=== PATIENT | female | born 1980 | race Caucasian/White ===

== ENCOUNTER 2021-03-06 18:45 | Emergency (ER) | payer SELFPAY | END 2021-03-06 21:31 | disposition left against medical advice (07) | LOC: ER 18:45 | DX: R10.9 Unspecified abdominal pain (principal); Z53.21 Procedure and treatment not carried out due to patient leaving prior to being seen by health care provider ==

== ENCOUNTER 2021-03-10 22:58 | Emergency (ER) | payer SELFPAY ==
[~2021-03-10] VITALS: Ht 167.6 cm; Wt 86.0 kg
[2021-03-11] MEDS ORDERED: CONTRAST GIVEN. MC PRN (01:15)
[2021-03-11 01:17] LABS: BILIRUBIN,URINE NEGATIVE (NEG); CLARITY,URINE CLEAR; COLOR,URINE YELLOW; NITRITE,URINE NEGATIVE (NEG); PROTEIN,URINE NEGATIVE (NEG-TRACE); UROBILINOGEN,URINE 0.2 mg/dL (0.2 mg/dL)
[2021-03-11] MEDS ORDERED: IOHEXOL 300 MG/ML 100ML VIAL. IV ONE (01:30)
[2021-03-11] MEDS ORDERED: IOHEXOL 240 MG/ML 50ML VIAL. PO ONE (01:30)
--- NOTE | 2021-03-11 01:30 | PHYS DOC ---
Past Medical History Past Surgical History: Appendectomy, Cholecystectomy, , Gastric Bypass, Hysterectomy Smoking Status: Former Smoker Alcohol Use: Occasionally Adult General Chief Complaint Chief Complaint: NAUSEA/VOMITING/DIARRHEA HPI HPI The patient is a 41-year-old female with a history of gastric bypass around a decade ago in [place]. Her additional abdominal surgical history includes cholecystectomy, appendectomy, and hysterectomy. She has had what sounds like multiple abdominal surgical interventions for internal hernias in the past, the last a few years ago. She remains a smoker but tells me she does not use NSAIDs inappropriately. Patient presents for evaluation of a couple of days of sharp, focal epigastric discomfort radiating straight through to the back which she states feels very similar to her prior hernia discomfort. Discomfort is constant and rated an 7 out of 10 in severity. Nothing seems to make it better or worse. Associated nausea without vomiting. No associated fevers, upper respiratory c ongestion/rhinorrhea, cough, sore throat, shortness of breath or chest pain of any kind, specifically right-sided or lower abdominal pain of any kind, flank pain, midline back pain, dysuria, hematuria, polyuria or oliguria, changes in bowel habits. Patient is alert and pleasantly and appropriately interactive and in no acute distress with appropriate vital signs upon initial evaluation here in the emergency department. Review of Systems Review of Systems A 12 point review of systems was completed and was negative except where noted in HPI above. Current Medications Current Medications Current Medications Medications (Trade) Dose Ordered Sig/Ha Start Time Stop Time Status Last Admin Dose Admin Acetaminophen (Tylenol) 1,000 mg 1X ONCE 03/11/21 02:00 03/11/21 02:01 DC 03/11/21 01:17 1,000 MG Info (CONTRAST GIVEN -- Rx MONITORING) 1 each PRN DAILY PRN 03/11/21 01:15 03/13/21 01:14 Iohexol (Omnipaque 240 Mg/ml) 50 ml 1X ONCE 03/11/21 01:30 03/11/21 01:31 DC 03/11/21 01:30 50 ML Iohexol (Omnipaque 300 Mg/ml) 75 ml 1X ONCE 03/11/21 01:30 03/11/21 01:31 DC 03/11/21 02:22 75 ML Morphine Sulfate (Morphine Sulfate) 4 mg 1X ONCE 03/11/21 04:00 03/11/21 04:01 DC 03/11/21 03:52 4 MG Multi-Ingredient Mouthwash/Gargle (Gi Cocktail) 20 ml 1X ONCE 03/11/21 02:00 03/11/21 02:01 DC 03/11/21 01:48 20 ML Multivitamins 10 ml/Thiamine HCl 100 mg/Folic Acid 1 mg/Sodium Chloride 1,011.2 ml @ 1,000.088 mls/hr 1X ONCE 03/11/21 02:00 03/11/21 03:00 DC 03/11/21 01:53 1,000.088 MLS/HR Ondansetron HCl (Zofran) 4 mg 1X ONCE 03/11/21 02:00 03/11/21 02:01 DC 03/11/21 01:45 4 MG Allergies Allergies Allergies Coded Allergies Type Severity Reaction Last Updated Verified cephalexin Allergy Severe 03/11/21 Yes metoclopramide Allergy Severe 03/11/21 Yes ketorolac Allergy Intermediate 03/11/21 Yes prochlorperazine Allergy Intermediate 03/11/21 Yes tramadol Allergy Intermediate 03/11/21 Yes Physical Exam Physical Exam 41-year-old female appearing nontoxic and in no acute distress. Head is normocephalic and atraumatic. Neck is supple and nontender. Oropharynx is moist. Lungs are clear to auscultation at all stations. There is a normal S1 and S2 without rubs or gallops and capillary refill is appropriate, less than 2 seconds globally. Abdomen is soft, nondistended and with mild focal epigastric tenderness to palpation without rebound or guarding. No right-sided or lower quadrant abdominal tenderness to palpation. Skin is warm and dry without cyanosis, clubbing or edema. Psychiatrically, the patient demonstrates appropriate mood and affect and is alert. Current Patient Data Vital Signs Vital Signs Date Time Temp Pulse Resp B/P (MAP) Pulse Ox O2 Delivery O2 Flow Rate FiO2 03/11/21 03:52 16 98 Room Air 03/11/21 00:30 98.6 100 131/96 (108) 98.6 Lab Values Laboratory Tests Test 03/11/21 00:29 03/11/21 01:50 03/11/21 03:10 Urine Collection Type Unknown Urine Color Yellow Urine Clarity Clear Urine pH 7.0 (<5.0-8.0) Urine Specific [place] <=1.005 (1.000-1.030) Urine Protein Negative mg/dL (NEG-TRACE) Urine Glucose (UA) Negative mg/dL (NEG) Urine Ketones (Stick) Negative mg/dL (NEG) Urine Blood Negative (NEG) Urine Nitrite Negative (NEG) Urine Bilirubin Negative (NEG) Urine Urobilinogen Dipstick 0.2 mg/dL (0.2 mg/dL) Urine Leukocyte Esterase Negative (NEG) Urine RBC 0 /HPF (0-2) Urine WBC Occ /HPF (0-4) Urine Squamous Epithelial Cells Mod /LPF Urine Bacteria Few /HPF (0-FEW) Urine Mucus Slight /LPF White Blood Count 5.7 x10^3/uL (4.0-11.0) Red Blood Count 4.53 x10^6/uL (3.50-5.40) Hemoglobin 12.8 g/dL (12.0-15.5) Hematocrit 38.4 % (36.0-47.0) Mean Corpuscular Volume 85 fL (79-100) Mean Corpuscular Hemoglobin 28 pg (25-35) Mean Corpuscular Hemoglobin Concent 33 g/dL (31-37) Red Cell Distribution Width 15.5 % (11.5-14.5) H Platelet Count 205 x10^3/uL (140-400) Neutrophils (%) (Auto) 62 % (31-73) Lymphocytes (%) (Auto) 30 % (24-48) Monocytes (%) (Auto) 7 % (0-9) Eosinophils (%) (Auto) 1 % (0-3) Basophils (%) (Auto) 1 % (0-3) Neutrophils # (Auto) 3.5 x10^3/uL (1.8-7.7) Lymphocytes # (Auto) 1.7 x10^3/uL (1.0-4.8) Monocytes # (Auto) 0.4 x10^3/uL (0.0-1.1) Eosinophils # (Auto) 0.0 x10^3/uL (0.0-0.7) Basophils # (Auto) 0.0 x10^3/uL (0.0-0.2) Sodium Level 140 mmol/L (136-145) Potassium Level 4.2 mmol/L (3.5-5.1) Chloride Level 104 mmol/L (98-107) Carbon Dioxide Level 27 mmol/L (21-32) Anion Gap 9 (6-14) Blood Urea Nitrogen 7 mg/dL (7-20) Creatinine 0.8 mg/dL (0.6-1.0) Estimated GFR (Cockcroft-Gault) 79.4 BUN/Creatinine Ratio 9 (6-20) Glucose Level 99 mg/dL (70-99) Calcium Level 8.1 mg/dL (8.5-10.1) L Magnesium Level 2.0 mg/dL (1.8-2.4) Total Bilirubin 0.6 mg/dL (0.2-1.0) Aspartate Amino Transferase (AST) 16 U/L (15-37) Alanine Aminotransferase (ALT) 17 U/L (14-59) Alkaline Phosphatase 79 U/L (46-116) Total Protein 6.4 g/dL (6.4-8.2) Albumin 3.2 g/dL (3.4-5.0) L Albumin/Globulin Ratio 1.0 (1.0-1.7) Lipase 61 U/L (73-393) L Laboratory Tests 03/11/21 01:50 Laboratory Tests 03/11/21 03:10 EKG EKG [] Radiology/Procedures Radiology/Procedures CT ABDOMEN+PELVIS W History: Reason: epigastric pain rad to back; h/o thiago bypass s/p multiple internal hernias / Spl. Instructions: OMNI 240 50 ML PO, OMNI 300 75 ML. DRINK@0115 SCAN @2:15 / History: Technique: After the administration of intravenous contrast, CT imaging was performed of the abdomen and pelvis. Multiplanar images are reviewed. Exposure: One or more of the following individualized dose reduction techniques were utilized for this examination: 1. Automated exposure control 2. Adjustment of the mA and/or kV according to patient size 3. Use of iterative reconstruction technique. Comparison: None Findings: Lower chest: No consolidation or pleural effusion. Abdomen and pelvis: The liver, spleen, adrenal glands, and pancreas are unremarkable. Prior cholecystectomy. Biliary ductal dilatation within normal limits for post cholecystectomy state. No renal calculus. No hydronephrosis. Decompressed urinary bladder. Appendix is not well seen. No evidence of bowel obstruction. Oral contrast opacifies to the level of the colon. Operative changes gastric bypass. Wall thickening of the gastric remnant. Patent gastrojejunostomy. No evidence of bowel obstruction. No pathologic lymphadenopathy. No ascites. Prior hysterectomy. Bones: No pathologic osseous lesions. Impression: 1. Gastric bypass with wall thickening of the gastric remnant, may represent gastritis. Patent gastrojejunostomy. Recommend follow-up to ensure resolution. Electronically signed by: Olegario Ladd DO (03/11/2021 3:26 AM) [facility] DICTATED and SIGNED BY: OLEGARIO LADD DO DATE: 03/11/21 [id number] 0 Course & Med Decision Making Course & Med Decision Making Generally well-appearing 41-year-old female status post gastric bypass and multiple other abdominal surgeries in the past, with a history of multiple interventions for what sounds like internal hernias in the past. Now presenting with epigastric pain which she states feels similar to prior hernia discomfort. Will place IV and give IV fluids and medication for nausea and discomfort as noted and will check labs and a CT scan of the abdomen and pelvis with IV and enteric contrast. We will then reevaluate. 0400: Patient resting comfortably in no acute distress on serial reassessments. Having discomfort which is fairly refractory to pain medications here in the emergency department. Has received Protonix, GI cocktail, Tylenol and multiple doses of morphine. Labs and imaging as above are without evidence of any acute process aside from a suggestion of some gastritis on CT imaging. Given julito odonnell's refractory discomfort and gastric bypass history, recommended transfer to a center with bariatric surgery available for observation and further evaluation. Arranged a transfer to [facility] [place] for bariatric surgery evaluation and further care but patient states that she cannot be admitted to the hospital right now and wants to go home and follow-up outpatient. Let her know that if she chooses to go home and follow-up outpatient that this will be against my advice as I feel there are a number of serious unanswered questions regarding her acute pain. We discussed, and she understands, that she is at risk for decompensation, loss of current lifestyle, permanent disability and even and electing to leave the hospital against advice when transfer for bariatric surgery attention is recommended. She is able to restate these risks in her own words and agrees to be holey and sole responsible for them. Even though leaving against advice is not ideal, I have endeavored to provide her with appropriate follow-up instructions including a referral to bariatric surgery at [facility] [place]; she is to call on Saturday for an urgent appointment. She is already on 80 mg of Protonix twice daily. We will add on Carafate 4 times daily and provide some oral morphine for breakthrough discomfort. She understands that if she changes her mind and wants to be further taken care of, if she develops worsening symptoms of any kind or any other new symptoms of concern that she should return to the emergency department immediately for reevaluation, and we will be more than happy to take care of her. All questions are answered. AMA paperwork signed and placed in the [employer] nt chart. Dragon Disclaimer Dragon Disclaimer This electronic medical record was generated, in whole or in part, using a voice recognition dictation system. Departure Departure Impression: Primary Impression: Acute epigastric pain Disposition: LEFT AGAINST MEDICAL ADVICE Condition: STABLE Patient Instructions: Abdominal Pain Additional Instructions: Follow-up very closely with one of the bariatric surgeons at [facility] [place]. Call on Saturday morning for close follow-up appointment and let the clinical research specialist note that you were in the emergency room over the weekend and need a very close follow-up appointment with Dr. Allyssa Lopez for one of her bariatric surgery partners. Drink plenty of fluids to stay hydrated. Take your home Protonix twice a day as already prescribed. Begin taking a Carafate pill 4 times a day. You may take 500 mg of Tylenol every 6 hours as needed for disc omfort. For pain not well controlled with other measures you may take an oral morphine pill every 6 hours as needed. Be careful because oral morphine can make you sleepy so do not drive or work or operate machinery while taking it. Return to the emergency department right away for worsening symptoms of any kind or with any other new symptoms of concern. Scripts Morphine Sulfate (MORPHINE SULFATE) 15 Mg Tablet 1 TAB PO TID for breakthrough pain, #13 TAB Prov: LIN BAY MD 03/11/21 Sucralfate (CARAFATE) 1 Gm Tablet 1 TAB PO QID for 30 Days, #120 TAB 0 Refills Prov: LIN BAY MD 03/11/21 LIN BAY MD Mar 11, 2021 01:30
[2021-03-11 01:31] LABS: BACTERIA,URINE FEW /HPF (0-FEW); RBC,URINE 0 /HPF (0-2); WBC,URINE OCC /HPF (0-4)
[2021-03-11 01:56] LABS: BASO % 1 % (0-3); EOS % 1 % (0-3); HEMATOCRIT 38.4 % (36.0-47.0); HEMOGLOBIN 12.8 g/dL (12.0-15.5); LYMPH # 1.7 x10^3/uL (1.0-4.8); LYMPH % 30 % (24-48); MEAN CORPUSCULAR HEMOGLOBIN 28 pg (25-35); MEAN CORPUSCULAR HGB CONC 33 g/dL (31-37); MEAN CORPUSCULAR VOLUME 85 fL (79-100); MONO # 0.4 x10^3/uL (0.0-1.1); MONO % 7 % (0-9); NEUT # 3.5 x10^3/uL (1.8-7.7); NEUT % 62 % (31-73); PLATELET COUNT 205 x10^3/uL (140-400); RED BLOOD COUNT 4.53 x10^6/uL (3.50-5.40); RED CELL DISTRIBUTION WIDTH 15.5 % (11.5-14.5); WHITE BLOOD COUNT 5.7 x10^3/uL (4.0-11.0)
[2021-03-11] MEDS ORDERED: LIDO:MAALOX 1:1 20 ML SINGLE DOSE. SWSW ONE (02:00)
[2021-03-11] MEDS ORDERED: MULTIVIT INFUSN,ADULT 4,VIT K 10 ML, THIAMINE INJ 100 MG, FOLIC ACID INJ 1 MG in IV NOR... IV ONE (02:00)
[2021-03-11] MEDS ORDERED: ONDANSETRON PF 4 MG/2 ML VIAL. IVP ONE (02:00)
[2021-03-11] MEDS ORDERED: ACETAMINOPHEN 500 MG TABLET PO ONE (02:00)
[2021-03-11] MEDS ORDERED: MORPHINE SULFATE 4 MG/ML INJ. IVP ONE ×2 (02:30→04:00)
--- NOTE | 2021-03-11 03:28 | RAD ---
CT ABDOMEN+PELVIS W History: Reason: epigastric pain rad to back; h/o thiago bypass s/p multiple internal hernias / Spl. In structions: OMNI 240 50 ML PO, OMNI 300 75 ML. DRINK@0115 SCAN @2:15 / History: Technique: After the administration of intravenous contrast, CT imaging was performed of the abdomen and pelvis. Multiplanar images are reviewed. Exposure: One or more of the following individualized dose reduction techniques were utilized for thi s examination: 1. Automated exposure control 2. Adjustment of the mA and/or kV according to patient size 3. Use of iterative reconstruction technique. Comparison: None Findings: Lower chest: No consolidation or pleural effusion. Abdomen and pelvis: The liver, spleen, adrenal glands, and pancreas are unremarkable. Prior cholecyst ectomy. Biliary ductal dilatation within normal limits for post cholecystectomy state. No renal calcu alfred. No hydronephrosis. Decompressed urinary bladder. Appendix is not well seen. No evidence of bowel obstruction. Oral contrast opacifies to the level of the colon. Operative changes gastric bypass. Wall thickening of the gastric remnant. Patent gastrojejunostomy. N o evidence of bowel obstruction. No pathologic lymphadenopathy. No ascites. Prior hysterectomy. Bones: No pathologic osseous lesions. Impression: 1. Gastric bypass with wall thickening of the gastric remnant, may represent gastritis. Patent gastr ojejunostomy. Recommend follow-up to ensure resolution. Electronically signed by: Olegario Ladd DO (03/11/2021 3:26 AM) [facility]
[2021-03-11 03:49] LABS: CALCIUM 8.1 mg/dL (8.5-10.1); CREATININE 0.8 mg/dL (0.6-1.0); GFR 79.4; POTASSIUM 4.2 mmol/L (3.5-5.1)
[2021-03-11 03:56] LABS: ALBUMIN 3.2 g/dL (3.4-5.0); TOTAL BILIRUBIN 0.6 mg/dL (0.2-1.0); TOTAL PROTEIN 6.4 g/dL (6.4-8.2)
[2021-03-11] MEDS ORDERED: MORP15TA PO (04:59)
[2021-03-11] MEDS ORDERED: SUCR1TAB35 PO (04:59)
[2021-03-11 05:07] VITALS: BP 143/79
[2021-03-11] MEDS ORDERED: SUCRALFATE 1 GM TABLET. PO ONE (05:30)
[2021-03-11] MEDS ORDERED: PANTOPRAZOLE 40 MG TABLET.DR. PO ONE (05:30)
== END 2021-03-11 05:07 | disposition left against medical advice (07) ==
LOC: ER 22:58
DX: R10.13 Epigastric pain (principal); R11.0 Nausea; Z98.84 Bariatric surgery status; Z90.89 Acquired absence of other organs; Z90.49 Acquired absence of other specified parts of digestive tract; Z87.891 Personal history of nicotine dependence
CPT/HCPCS: 36415; 74177; 80053; 81001; 83690; 83735; 85025; 96365; 96366; 96375; 96376; 99285; J2270; J2405; J3411; J3490; J7030; Q9966; Q9967

== ENCOUNTER 2021-04-06 11:47 | Emergency (ER) | payer SELFPAY ==
[~2021-04-06] VITALS: Ht 167.6 cm; Wt 91.1 kg
[~2021-04-06 11:47] MED LIST: MORP15TA PO; SUCR1TAB35 PO
[2021-04-06 11:50] VITALS: BP 156/94
[2021-04-06] MEDS ORDERED: fentaNYL PF VIAL 100 MCG/2 ML VIAL IVP ONE (12:00)
[2021-04-06] MEDS ORDERED: IV NORMAL SALINE 1000ML BAG 1,000 ML IV ONE (12:00)
[2021-04-06] MEDS ORDERED: ONDANSETRON PF 4 MG/2 ML VIAL. IVP ONE (12:00)
[2021-04-06 12:20] LABS: BARBITURATES NEG (NEG); BENZODIAZEPINES NEG (NEG); CANNABINOIDS NEG (NEG); COCAINE NEG (NEG); METHADONE NEG (NEG); OPIATES POS (NEG); PHENCYCLIDINE NEG (NEG)
[2021-04-06 12:22] LABS: AMPHETAMINE/METHAMPHETAMINE NEG (NEG)
[2021-04-06 12:25] LABS: BILIRUBIN,URINE NEGATIVE (NEG); CLARITY,URINE CLEAR; COLOR,URINE YELLOW; NITRITE,URINE NEGATIVE (NEG); PH,URINE 6.5 (<5.0-8.0); PROTEIN,URINE NEGATIVE (NEG-TRACE)
[2021-04-06 12:27] LABS: RBC,URINE >40 /HPF (0-2)
[2021-04-06 12:28] LABS: BACTERIA,URINE 0 /HPF (0-FEW); WBC,URINE 0 /HPF (0-4)
[2021-04-06 13:16] LABS: CALCIUM 8.3 mg/dL (8.5-10.1); GFR 61.4; POTASSIUM 4.8 mmol/L (3.5-5.1)
[2021-04-06 13:18] LABS: BASO % 1 % (0-3); EOS # 0.1 x10^3/uL (0.0-0.7); EOS % 2 % (0-3); HEMATOCRIT 34.7 % (36.0-47.0); HEMOGLOBIN 11.1 g/dL (12.0-15.5); LYMPH # 1.8 x10^3/uL (1.0-4.8); LYMPH % 33 % (24-48); MEAN CORPUSCULAR HEMOGLOBIN 27 pg (25-35); MEAN CORPUSCULAR HGB CONC 32 g/dL (31-37); MEAN CORPUSCULAR VOLUME 86 fL (79-100); MONO # 0.4 x10^3/uL (0.0-1.1); MONO % 8 % (0-9); NEUT # 3.1 x10^3/uL (1.8-7.7); NEUT % 57 % (31-73); PLATELET COUNT 212 x10^3/uL (140-400); RED BLOOD COUNT 4.06 x10^6/uL (3.50-5.40); RED CELL DISTRIBUTION WIDTH 14.9 % (11.5-14.5); WHITE BLOOD COUNT 5.4 x10^3/uL (4.0-11.0)
[2021-04-06 13:22] LABS: ALBUMIN 3.3 g/dL (3.4-5.0); ALBUMIN/GLOBULIN RATIO 0.9 (1.0-1.7); TOTAL BILIRUBIN 0.2 mg/dL (0.2-1.0); TOTAL PROTEIN 6.8 g/dL (6.4-8.2)
--- NOTE | 2021-04-06 13:31 | RAD ---
CT of the abdomen and pelvis without contrast. 04/06/2021 12:54 PM Indication: Reason: flank pain hx of kidney stones/ hx hysterectomy Comparison Study: CT of the abdomen and pelvis with contrast March 11, 2021 Technique: Multidetector CT imaging of the abdomen pelvis is obtained without administration of contr ast. Findings: The visualized bilateral lung bases are clear. The liver, spleen, bilateral adrenal glands, and pancreas have a normal noncontrast enhanced appearan ce. The bilateral kidneys are grossly normal in appearance. There is no evidence of nephrolithiasis o r obstructive uropathy. The ureters are normal in course and caliber. The bladder is grossly unremark able. There is no significant free fluid or free air in the abdomen or pelvis. Postoperative changes following gastric bypass and appendectomy noted. The gallbladder is surgically absent. There is no ev idence of bowel obstruction or significant inflamatory change involving the bowel. There is no acute osseous abnormality identified. Impression: 1. No evidence of acute intra-abdominal abnormality 2. No evidence of nephrolithiasis or acute obstructive uropathy. CT DOSING PQRS STATEMENT: One or more of the following individualized dose reduction techniques were utilized for this examinat ion: 1. Automated exposure control 2. Adjustment of the mA and/or kV according to patient size 3. Use of iterative reconstruction technique Electronically signed by: Reji Johnson MD (04/06/2021 1:29 PM) [id number]
[2021-04-06] MEDS ORDERED: CYCL10TA19 PO (14:19)
--- NOTE | 2021-04-06 14:19 | PHYS DOC ---
Past Medical History Past Surgical History: Appendectomy, Cholecystectomy, , Gastric Bypass, Hysterectomy Smoking Status: Current Every Day Smoker Additional Information: "I VAPE." Alcohol Use: Occasionally General Adult EDM: Chief Complaint: FLANK PAIN HPI: HPI: Patient is a 41 year old female patient with history of kidney stones presented to the ED today complaining of 10 out of 10 left flank pain with nausea, symptoms began yesterday. Patient said this pain is consistent with her kidney stones. She immediately starts asking for pain medicine. Review of Systems: Review of Systems: Constitutional: Denies fever or chills. [] Eyes: Denies change in visual acuity. [] HENT: Denies nasal congestion or sore throat. [] Respiratory: Denies cough or shortness of breath. [] Cardiovascular: Denies chest pain or edema. [] GI: Denies abdominal pain, nausea, vomiting, bloody stools or diarrhea. [] : Reports left flank pain. Denies dysuria. [] Musculoskeletal: Denies back pain or joint pain. [] Integument: Denies rash. [] Neurologic: Denies headache, focal weakness or sensory changes. [] Psychiatric: Denies depression or anxiety. [] Heart Score: C/O Chest Pain: N/A Risk Factors: Risk Factors: DM, Current or recent (<one month) smoker, HTN, HLP, family history of CAD, obesity. Risk Scores: Score 0 - 3: 2.5% MACE over next 6 weeks - Discharge Home Score 4 - 6: 20.3% MACE over next 6 weeks - Admit for Clinical Observation Score 7 - 10: 72.7% MACE over next 6 weeks - Early Invasive Strategies Current Medications: Current Medications Medications (Trade) Dose Ordered Sig/[facility] Start Time Stop Time Status Last Admin Dose Admin Fentanyl Citrate (Fentanyl 2ml Vial) 50 mcg 1X ONCE 04/06/21 12:00 04/06/21 12:03 DC 04/06/21 13:03 50 MCG Ondansetron HCl (Zofran) 4 mg 1X ONCE 04/06/21 12:00 04/06/21 12:03 DC 04/06/21 13:06 4 MG Sodium Chloride 1,000 ml @ 1,000 mls/hr 1X ONCE 04/06/21 12:00 04/06/21 12:59 DC 04/06/21 13:03 1,000 MLS/HR Allergies: Allergies: Allergies Coded Allergies Type Severity Reaction Last Updated Verified cephalexin Allergy Severe 04/06/21 Yes metoclopramide Allergy Severe 04/06/21 Yes ketorolac Allergy Intermediate 04/06/21 Yes prochlorperazine Allergy Intermediate 04/06/21 Yes tramadol Allergy Intermediate 04/06/21 Yes Physical Exam: PE: Constitutional: Well developed, well nourished, no acute distress, non-toxic appearance. [] HENT: Normocephalic, atraumatic, bilateral external ears normal, oropharynx moist, no oral exudates, nose normal. [] Eyes: PERRLA, EOMI, conjunctiva normal, no discharge. [] Neck: Normal range of motion, no tenderness, supple, no stridor. [] Cardiovascular:Heart rate regular rhythm, no murmur [] Lungs & Thorax: Bilateral breath sounds clear to auscultation [] Abdomen: Bowel sounds normal, soft, no tenderness, no masses, no pulsatile masses. [] Skin: Warm, dry, no erythema, no rash. [] Back: No tenderness, mild left CVA tenderness. [] Extremities: No tenderness, no cyanosis, no clubbing, ROM intact, no edema. [] Neurologic: Alert and oriented X 3, normal motor function, normal sensory function, no focal deficits noted. [] Psychologic: Affect normal, judgement normal, mood normal. [] Current Patient Data: Labs: Laboratory Tests Test 04/06/21 11:55 04/06/21 13:00 Urine Collection Type Unknown Urine Color Yellow Urine Clarity Clear Urine pH 6.5 (<5.0-8.0) Urine Specific [place] 1.010 (1.000-1.030) Urine Protein Negative mg/dL (NEG-TRACE) Urine Glucose (UA) Negative mg/dL (NEG) Urine Ketones (Stick) Negative mg/dL (NEG) Urine Blood Large (NEG) Urine Nitrite Negative (NEG) Urine Bilirubin Negative (NEG) Urine Urobilinogen Dipstick 1.0 mg/dL (0.2 mg/dL) Urine Leukocyte Esterase Negative (NEG) Urine RBC >40 /HPF (0-2) Urine WBC 0 /HPF (0-4) Urine Squamous Epithelial Cells Mod /LPF Urine Bacteria 0 /HPF (0-FEW) Urine Opiates Screen Pos (NEG) Urine Methadone Screen Neg (NEG) Urine Barbiturates Neg (NEG) Urine Phencyclidine Screen Neg (NEG) Urine Amphetamine/Methamphetamine Neg (NEG) Urine Benzodiazepines Screen Neg (NEG) Urine Cocaine Screen Neg (NEG) Urine Cannabinoids Screen Neg (NEG) Urine Ethyl Alcohol Neg (NEG) White Blood Count 5.4 x10^3/uL (4.0-11.0) Red Blood Count 4.06 x10^6/uL (3.50-5.40) Hemoglobin 11.1 g/dL (12.0-15.5) L Hematocrit 34.7 % (36.0-47.0) L Mean Corpuscular Volume 86 fL (79-100) Mean Corpuscular Hemoglobin 27 pg (25-35) Mean Corpuscular Hemoglobin Concent 32 g/dL (31-37) Red Cell Distribution Width 14.9 % (11.5-14.5) H Platelet Count 212 x10^3/uL (140-400) Neutrophils (%) (Auto) 57 % (31-73) Lymphocytes (%) (Auto) 33 % (24-48) Monocytes (%) (Auto) 8 % (0-9) Eosinophils (%) (Auto) 2 % (0-3) Basophils (%) (Auto) 1 % (0-3) Neutrophils # (Auto) 3.1 x10^3/uL (1.8-7.7) Lymphocytes # (Auto) 1.8 x10^3/uL (1.0-4.8) Monocytes # (Auto) 0.4 x10^3/uL (0.0-1.1) Eosinophils # (Auto) 0.1 x10^3/uL (0.0-0.7) Basophils # (Auto) 0.0 x10^3/uL (0.0-0.2) Sodium Level 141 mmol/L (136-145) Potassium Level 4.8 mmol/L (3.5-5.1) Chloride Level 103 mmol/L (98-107) Carbon Dioxide Level 28 mmol/L (21-32) Anion Gap 10 (6-14) Blood Urea Nitrogen 12 mg/dL (7-20) Creatinine 1.0 mg/dL (0.6-1.0) Estimated GFR (Cockcroft-Gault) 61.4 BUN/Creatinine Ratio 12 (6-20) Glucose Level 85 mg/dL (70-99) Calcium Level 8.3 mg/dL (8.5-10.1) L Total Bilirubin 0.2 mg/dL (0.2-1.0) Aspartate Amino Transferase (AST) 18 U/L (15-37) Alanine Aminotransferase (ALT) 11 U/L (14-59) L Alkaline Phosphatase 80 U/L (46-116) Total Protein 6.8 g/dL (6.4-8.2) Albumin 3.3 g/dL (3.4-5.0) L Albumin/Globulin Ratio 0.9 (1.0-1.7) L Ethyl Alcohol Level < 10 mg/dL (0-10) Laboratory Tests 04/06/21 13:00 Laboratory Tests 04/06/21 13:00 Vital Signs: Vital Signs Date Time Temp Pulse Resp B/P (MAP) Pulse Ox O2 Delivery O2 Flow Rate FiO2 04/06/21 11:50 98.1 102 22 156/94 (114) 98 98.1 EKG: EKG: [] Radiology/Procedures: Radiology/Procedures: []PROCEDURE: CT ABDOMEN PELVIS WO CONTRAST CT of the abdomen and pelvis without contrast. 04/06/2021 12:54 PM Indication: Reason: flank pain hx of kidney stones/ hx hysterectomy Comparison Study: CT of the abdomen and pelvis with contrast March 11, 2021 Technique: Multidetector CT imaging of the abdomen pelvis is obtained without administration of contrast. Findings: The visualized bilateral lung bases are clear. The liver, spleen, bilateral adrenal glands, and pancreas have a normal noncontrast enhanced appearance. The bilateral kidneys are grossly normal in appearance. There is no evidence of nephrolithiasis or obstructive uropathy. The ureters are normal in course and caliber. The bladder is grossly unremarkable. There is no significant free fluid or free air in the abdomen or pelvis. Postoperative changes following gastric bypass and appendectomy noted. The gallbladder is surgically absent. There is no evidence of bowel obstruction or significant inflamatory change involving the bowel. There is no acute osseous abnormality identified. Impression: 1. No evidence of acute intra-abdominal abnormality 2. No evidence of nephrolithiasis or acute obstructive uropathy. CT DOSING PQRS STATEMENT: One or more of the following individualized dose reduction techniques were utilized for this examination: 1. Automated exposure control 2. Adjustment of the mA and/or kV according to patient size 3. Use of iterative reconstruction technique Electronically signed by: Reji Kimball MD (04/06/2021 1:29 PM) [id number] DICTATED and SIGNED BY: REJI KIMBALL MD DATE: 04/06/21 [id number] 0 Course & Med Decision Making: Course & Med Decision Making Pertinent Labs and Imaging studies reviewed. (See chart for details) This is a 41-year-old female patient presenting to the ED today complaining of left flank pain with nausea since yesterday. Reports history of kidney stones. Patient is well-known to this ED. CBC with a normal WBC, CMP with no acute findings, UA negative for infection, CT of the abdomen and pelvis was negative for kidney stones. Results were communicated to patient, she started asking for more pain medicines to be given in the Ed and home use. Informed patient she does not have a kidney stone which was her original concern and there is no indication for pain medicines for home use she can take Tylenol/Motrin/Flexeril. She asked why we not addressing her blood in the urine. Informed patient there is nothing concerning right now for blood in her urine. Informed her her CT of the abdomen and pelvis is negative for any kidney stones. She can see a urologist if she continues to have blood in her urine. I recommend straight cath when she comes to the ED again D/c to home. Provided Urologist for follow up and PCP [place] Disclaimer: [place] Disclaimer: This electronic medical record was generated, in whole or in part, using a voice recognition dictation system. Departure Departure Impression: Primary Impression: Left flank pain Disposition: HOME / SELF CARE / HOMELESS Condition: STABLE Referrals: NO PCP (PCP) PEDRO LUIS CHASE MD follow up in one week Patient Instructions: Flank Pain, [id number] Additional Instructions: You were evaluated in the emergency room for flank pain. Your CT of the abdomen and pelvis was negative for any kidney stones. Your lab work was negative for any acute findings. Please follow-up with your primary care doctor or doctor from the list provided as well as the provided urologist Scripts Cyclobenzaprine Hcl (CYCLOBENZAPRINE HCL) 10 Mg Tablet 1 TAB PO TID, #30 TAB Prov: ROBERT SINGH APRN 04/06/21 ROBERT SINGH APRN Apr 06, 2021 14:19
== END 2021-04-06 14:44 | disposition home or self-care (01) ==
LOC: ER 11:47
DX: R10.9 Unspecified abdominal pain (principal); R11.0 Nausea; F17.200 Nicotine dependence, unspecified, uncomplicated; Z87.442 Personal history of urinary calculi; Z90.89 Acquired absence of other organs; Z90.49 Acquired absence of other specified parts of digestive tract; Z90.710 Acquired absence of both cervix and uterus; Z98.84 Bariatric surgery status; Z88.1 Allergy status to other antibiotic agents; Z88.6 Allergy status to analgesic agent; Z88.8 Allergy status to other drugs, medicaments and biological substances
CPT/HCPCS: 36415; 74176; 80053; 80307; 81001; 85025; 96361; 96374; 96375; 99284; G0480; J2405; J3010; J7030

== ENCOUNTER 2021-04-13 00:03 | Emergency (ER) | payer SELFPAY ==
[~2021-04-13] VITALS: Ht 167.6 cm; Wt 88.6 kg
[~2021-04-13 00:03] MED LIST changes: +CYCL10TA19 PO
[2021-04-13 01:09] LABS: BILIRUBIN,URINE NEGATIVE (NEG); CLARITY,URINE CLEAR; COLOR,URINE YELLOW; NITRITE,URINE NEGATIVE (NEG); PH,URINE 5.5 (<5.0-8.0); PROTEIN,URINE NEGATIVE (NEG-TRACE); UROBILINOGEN,URINE 0.2 mg/dL (0.2 mg/dL)
[2021-04-13 01:15] LABS: BACTERIA,URINE MODERATE /HPF (0-FEW); RBC,URINE 0 /HPF (0-2)
[2021-04-13] MEDS ORDERED: MORPHINE SULFATE 10 MG/ML VIAL. IVP ONE (01:15)
[2021-04-13] MEDS ORDERED: ONDANSETRON PF 4 MG/2 ML VIAL. IVP ONE (01:15)
[2021-04-13 01:16] LABS: HYALINE CASTS, URINE FEW /HPF
[2021-04-13 01:24] LABS: BASO % 1 % (0-3); EOS # 0.1 x10^3/uL (0.0-0.7); EOS % 2 % (0-3); HEMATOCRIT 35.3 % (36.0-47.0); HEMOGLOBIN 11.2 g/dL (12.0-15.5); LYMPH # 1.3 x10^3/uL (1.0-4.8); LYMPH % 29 % (24-48); MEAN CORPUSCULAR HEMOGLOBIN 27 pg (25-35); MEAN CORPUSCULAR HGB CONC 32 g/dL (31-37); MEAN CORPUSCULAR VOLUME 85 fL (79-100); MONO # 0.5 x10^3/uL (0.0-1.1); MONO % 12 % (0-9); NEUT # 2.6 x10^3/uL (1.8-7.7); NEUT % 56 % (31-73); PLATELET COUNT 187 x10^3/uL (140-400); RED BLOOD COUNT 4.14 x10^6/uL (3.50-5.40); WHITE BLOOD COUNT 4.6 x10^3/uL (4.0-11.0)
[2021-04-13 01:44] LABS: CALCIUM 8.7 mg/dL (8.5-10.1); CREATININE 0.9 mg/dL (0.6-1.0); GFR 69.3; POTASSIUM 3.6 mmol/L (3.5-5.1)
[2021-04-13 01:49] LABS: ALBUMIN 3.5 g/dL (3.4-5.0); ALBUMIN/GLOBULIN RATIO 0.9 (1.0-1.7); TOTAL BILIRUBIN 0.3 mg/dL (0.2-1.0); TOTAL PROTEIN 7.4 g/dL (6.4-8.2)
[2021-04-13] MEDS ORDERED: IOHEXOL 240 MG/ML 50ML VIAL. PO ONE (02:00)
[2021-04-13] MEDS ORDERED: CONTRAST GIVEN. MC PRN (02:00)
[2021-04-13] MEDS ORDERED: IOHEXOL 300 MG/ML 100ML VIAL. IV ONE (02:00)
--- NOTE | 2021-04-13 02:59 | RAD ---
CT ABDOMEN+PELVIS W History: epigastric pain, hx kevin en y gastric bypass Comparison: 04/06/2021 Technique: After administration of intravenous contrast, helical CT of the abdomen and pelvis was per formed from the lung bases through the ischial tuberosities. Coronal and sagittal reconstructions wer e obtained. 75 mL of Omnipaque 300 were used. One or more of the following dose reduction techniques were utilized: Automated exposure control (AEC), Adjustment of mA and/or kV according to patient size , Use of iterative reconstruction technique such as ASiR, CT scan done according to ALARA and image g ently/image wisely Abdomen Findings: The visualized lung bases are clear. The liver, pancreas, spleen, and bilateral adrenal glands are normal. Cholecystectomy. Symmetric renal enhancement. There is no focal renal mass. There is no hydronephrosis. Postsurgical changes of Kevin-en-Y gastric bypass. Enteric contrast reaches the distal small bowel. No evidence of gastrogastric fistula. Patulous bowel at the distal anastomosis, likely postsurgical hilda nge. No evidence of obstruction. The visualized loops of large bowel are normal. Appendectomy. There is no free fluid. There is no mesenteric or retroperitoneal adenopathy. The abdominal aorta is normal in caliber. Pelvis Findings: Urinary bladder is normal. Hysterectomy. No pelvic free fluid. There is no pelvic or inguinal adenopa thy. There is no acute bony abnormality. IMPRESSION: 1. No acute findings. No evidence of obstruction. 2. Kevin-en-Y gastric bypass. Cholecystectomy. Appendectomy. Hysterectomy. Electronically signed by: Shabbir Coleman MD (04/13/2021 2:57 AM) [facility]
[2021-04-13] MEDS ORDERED: LIDO:MAALOX 1:1 20 ML SINGLE DOSE. SWSW ONE (03:45)
[2021-04-13] MEDS ORDERED: MORPHINE SULFATE 4 MG/ML INJ. IVP ONE (03:45)
--- NOTE | 2021-04-13 04:19 | PHYS DOC ---
Past Medical History Past Surgical History: Appendectomy, Cholecystectomy, , Gastric Bypass, Hysterectomy Smoking Status: Current Every Day Smoker Alcohol Use: Occasionally General Adult EDM: Chief Complaint: ABDOMINAL PAIN HPI: HPI: Patient is a 41 year old female with history of cholecystectomy, appendectomy, hysterectomy, Denilson-en-Y gastric bypass (2007) who presents with recurrent epigastric abdominal pain. States that it started approximately 2 days ago. Radiates towards the back. Associated with nausea and vomiting. States that she is seen a GI specialist for this in the past, but has never been so bad. She has been started on sucralfate and Protonix twice a day which she states she has been compliant with. States that she is scheduled for an upper endoscopy in early May. Denies fever or chills. Normal bowel movements for her, which is multiple times a day after her RYGB. No melena or hematemesis. No dysuria, urgency, frequency. Review of Systems: Review of Systems: Constitutional: Denies fever or chills. [] Eyes: Denies change in visual acuity. [] HENT: Denies nasal congestion or sore throat. [] Respiratory: Denies cough or shortness of breath. [] Cardiovascular: Denies chest pain or edema. [] GI: Reports abdominal pain, nausea, vomiting. : Denies dysuria. [] Musculoskeletal: Denies back pain or joint pain. [] Integument: Denies rash. [] Neurologic: Denies headache, focal weakness or sensory changes. [] Psychiatric: Denies depression or anxiety. [] Heart Score: C/O Chest Pain: No Current Medications: Current Medications Medications (Trade) Dose Ordered Sig/Ha Start Time Stop Time Status Last Admin Dose Admin Info (CONTRAST GIVEN -- Rx MONITORING) 1 each PRN DAILY PRN 04/13/21 02:00 04/15/21 01:59 Iohexol (Omnipaque 240 Mg/ml) 30 ml 1X ONCE 04/13/21 02:00 04/13/21 02:01 DC 04/13/21 02:19 30 ML Iohexol (Omnipaque 300 Mg/ml) 75 ml 1X ONCE 04/13/21 02:00 04/13/21 02:01 DC 04/13/21 02:19 75 ML Morphine Sulfate (Morphine Sulfate) 4 mg 1X ONCE 04/13/21 03:45 04/13/21 03:46 DC 04/13/21 03:50 4 MG Multi-Ingredient Mouthwash/Gargle (Gi Cocktail) 20 ml 1X ONCE 04/13/21 03:45 04/13/21 03:46 DC 04/13/21 03:49 20 ML Ondansetron HCl (Zofran) 4 mg 1X ONCE 04/13/21 01:15 04/13/21 01:16 DC 04/13/21 01:24 4 MG Allergies: Allergies: Allergies Coded Allergies Type Severity Reaction Last Updated Verified cephalexin Allergy Severe 04/06/21 Yes metoclopramide Allergy Severe 04/06/21 Yes ketorolac Allergy Intermediate 04/06/21 Yes prochlorperazine Allergy Intermediate 04/06/21 Yes tramadol Allergy Intermediate 04/06/21 Yes Physical Exam: PE: Constitutional: Well developed, well nourished, no acute distress, non-toxic appearance. [] HENT: Normocephalic, atraumatic Neck: Normal range of motion, no tenderness, supple, no stridor. [] Cardiovascular:Heart rate regular rhythm, no murmur [] Lungs & Thorax: Bilateral breath sounds clear to auscultation [] Abdomen: Soft, tender in epigastrium, no guarding or rebound. Skin: Warm, dry, no erythema, no rash. [] Back: No tenderness, no CVA tenderness. [] Extremities: No tenderness, no cyanosis, no clubbing, ROM intact, no edema. [] Neurologic: Alert and oriented X 3, normal motor function, normal sensory function, no focal deficits noted. [] Psychologic: Affect normal, judgement normal, mood normal. [] Current Patient Data: Labs: Laboratory Tests Test 04/13/21 00:32 04/13/21 01:18 Urine Collection Type Unknown Urine Color Yellow Urine Clarity Clear Urine pH 5.5 (<5.0-8.0) Urine Specific [place] 1.020 (1.000-1.030) Urine Protein Negative mg/dL (NEG-TRACE) Urine Glucose (UA) Negative mg/dL (NEG) Urine Ketones (Stick) Trace mg/dL (NEG) Urine Blood Negative (NEG) Urine Nitrite Negative (NEG) Urine Bilirubin Negative (NEG) Urine Urobilinogen Dipstick 0.2 mg/dL (0.2 mg/dL) Urine Leukocyte Esterase Negative (NEG) Urine RBC 0 /HPF (0-2) Urine WBC 1-4 /HPF (0-4) Urine Squamous Epithelial Cells Many /LPF Urine Bacteria Moderate /HPF (0-FEW) Urine Hyaline Casts Few /HPF Urine Mucus Marked /LPF White Blood Count 4.6 x10^3/uL (4.0-11.0) Red Blood Count 4.14 x10^6/uL (3.50-5.40) Hemoglobin 11.2 g/dL (12.0-15.5) L Hematocrit 35.3 % (36.0-47.0) L Mean Corpuscular Volume 85 fL (79-100) Mean Corpuscular Hemoglobin 27 pg (25-35) Mean Corpuscular Hemoglobin Concent 32 g/dL (31-37) Red Cell Distribution Width 15.0 % (11.5-14.5) H Platelet Count 187 x10^3/uL (140-400) Neutrophils (%) (Auto) 56 % (31-73) Lymphocytes (%) (Auto) 29 % (24-48) Monocytes (%) (Auto) 12 % (0-9) H Eosinophils (%) (Auto) 2 % (0-3) Basophils (%) (Auto) 1 % (0-3) Neutrophils # (Auto) 2.6 x10^3/uL (1.8-7.7) Lymphocytes # (Auto) 1.3 x10^3/uL (1.0-4.8) Monocytes # (Auto) 0.5 x10^3/uL (0.0-1.1) Eosinophils # (Auto) 0.1 x10^3/uL (0.0-0.7) Basophils # (Auto) 0.0 x10^3/uL (0.0-0.2) Sodium Level 144 mmol/L (136-145) Potassium Level 3.6 mmol/L (3.5-5.1) Chloride Level 105 mmol/L (98-107) Carbon Dioxide Level 26 mmol/L (21-32) Anion Gap 13 (6-14) Blood Urea Nitrogen 8 mg/dL (7-20) Creatinine 0.9 mg/dL (0.6-1.0) Estimated GFR (Cockcroft-Gault) 69.3 BUN/Creatinine Ratio 9 (6-20) Glucose Level 105 mg/dL (70-99) H Calcium Level 8.7 mg/dL (8.5-10.1) Total Bilirubin 0.3 mg/dL (0.2-1.0) Aspartate Amino Transferase (AST) 12 U/L (15-37) L Alanine Aminotransferase (ALT) 9 U/L (14-59) L Alkaline Phosphatase 75 U/L (46-116) Total Protein 7.4 g/dL (6.4-8.2) Albumin 3.5 g/dL (3.4-5.0) Albumin/Globulin Ratio 0.9 (1.0-1.7) L Lipase 48 U/L (73-393) L Laboratory Tests 04/13/21 01:18 Laboratory Tests 04/13/21 01:18 Vital Signs: Vital Signs Date Time Temp Pulse Resp B/P (MAP) Pulse Ox O2 Delivery O2 Flow Rate FiO2 04/13/21 03:50 18 100 Room Air 04/13/21 00:34 98.2 73 148/88 (108) 98.2 EKG: EKG: [] Radiology/Procedures: Radiology/Procedures: [] Impression: [facility] [address] [place] [address] IMAGING REPORT Signed PATIENT: ALEENA KRAMER RACCOUNT: [id number] : 1980 LOCATION: ER AGE: 41 SEX: F EXAM STATUS: REG ER ORD. PHYSICIAN: ROBINSON GROSS MD REASON: epigastric pain, hx denilson en y gastric bypass;OMNI 240,30ML;OMNI 300,75ML PROCEDURE: CT ABD PELV W/ORAL&IV CONTRAST CT ABDOMEN+PELVIS W History: epigastric pain, hx denilson en y gastric bypass Comparison: 04/06/2021 Technique: After administration of intravenous contrast, helical CT of the abdomen and pelvis was performed from the lung bases through the ischial tuberosities. Coronal and sagittal reconstructions were obtained. 75 mL of Omnipaque 300 were used. One or more of the following dose reduction techniques were utilized: Automated exposure control (AEC), Adjustment of mA and/or kV according to patient size, Use of iterative reconstruction technique such as ASiR, CT scan done according to ALARA and image gently/image wisely Abdomen Findings: The visualized lung bases are clear. The liver, pancreas, spleen, and bilateral adrenal glands are normal. Cholecystectomy. Symmetric renal enhancement. There is no focal renal mass. There is no hydronephrosis. Postsurgical changes of Denilson-en-Y gastric bypass. Enteric contrast reaches the distal small bowel. No evidence of gastrogastric fistula. Patulous bowel at the distal anastomosis, likely postsurgical change. No evidence of obstruction. The visualized loops of large bowel are normal. Appendectomy. There is no free fluid. There is no mesenteric or retroperitoneal adenopathy. The abdominal aorta is normal in caliber. Pelvis Findings: Urinary bladder is normal. Hysterectomy. No pelvic free fluid. There is no pelvic or inguinal adenopathy. There is no acute bony abnormality. IMPRESSION: 1. No acute findings. No evidence of obstruction. 2. Denilson-en-Y gastric bypass. Cholecystectomy. Appendectomy. Hysterectomy. Electronically signed by: Edith Orellana MD (04/13/2021 2:57 AM) [facility] DICTATED and SIGNED BY: EDITH ORELLANA MD DATE: 04/13/21 [id number] 0 Course & Med Decision Making: Course & Med Decision Making Pertinent Labs and Imaging studies reviewed. (See chart for details) Patient is a 41-year-old female with history of multiple abdominal surgeries including appendectomy, cholecystectomy, hysterectomy, RYGB who presents with epigastric pain radiating towards her back. Mildly tachycardic, but otherwise vitally stable on arrival. Appears uncomfortable, with epigastric tenderness to palpation on exam. Lipase negative, no CT evidence of pancreatitis. Not pancreatitis. CT with IV and oral contrast unremarkable. No evidence of internal hernia or other surgical emergency. Discussed findings with patient, that she may have gastritis or nonbleeding peptic ulcer disease which would not be found on CT. She is already on sucralfate and BID protonix and has close GI follow up and scheduled outpatient EGD. Discussed return precautions. [place] Disclaimer: [place] Disclaimer: This electronic medical record was generated, in whole or in part, using a voice recognition dictation system. Departure Departure Impression: Primary Impression: Acute epigastric pain Additional Impression: History of Denilson-en-Y gastric bypass Disposition: HOME / SELF CARE / HOMELESS Condition: STABLE Referrals: NO PCP (PCP) Additional Instructions: Your work-up in the emergency department was very reassuring. Please continue your medications as outlined by your special programs director. Please call your gastroenterology office to let them know about your worsening symptoms. If you develop bloody vomiting, black/tarry stools, severe worsening in pain, or other new/concerning symptoms please return to the emergency department for reevaluation. Since you do not have a PCP, please call the number for the [facility] at [phone]. -Tylenol up to 1000 mg every 6 hours (do not exceed 4000 mg in one day) For pain not controlled by the above you can take: -Hydrocodone/acetaminophen 5325 mg every 4 hours as needed. Please be sure to count of the 325 mg of Tylenol towards your daily limit. This is a narcotic medication and can make you tired and impaired. Do not drive or operate machinery while taking hydrocodone. It can also make you consitpated so please consider taking docusate and miralax (as directed by over the counter directions) to prevent constipation. Please try to take as little hydrocodone as possible and wean yourself off as soon as you are able because it is an addictive medication. Scripts Hydrocodone Bit/Acetaminophen (HYDROCODONE-APAP 5-325 ) 1 Tab Tablet 1 TAB PO PRN Q6HRS PRN for PAIN, #12 TAB 0 Refills Prov: ROBINSON GROSS MD 04/13/21 ROBINSON GROSS MD Apr 13, 2021 04:19
[2021-04-13 04:26] VITALS: BP 129/69
[2021-04-13] MEDS ORDERED: HYDR-2761 PO (04:28)
== END 2021-04-13 04:38 | disposition home or self-care (01) ==
LOC: ER 00:03
DX: R10.13 Epigastric pain (principal); R11.2 Nausea with vomiting, unspecified; Z98.84 Bariatric surgery status; Z90.89 Acquired absence of other organs; Z90.49 Acquired absence of other specified parts of digestive tract; Z90.710 Acquired absence of both cervix and uterus; F17.200 Nicotine dependence, unspecified, uncomplicated; Z88.1 Allergy status to other antibiotic agents; Z88.6 Allergy status to analgesic agent; Z88.8 Allergy status to other drugs, medicaments and biological substances
CPT/HCPCS: 36415; 74177; 80053; 81001; 83690; 85025; 87086; 96374; 96375; 96376; 99285; J2270; J2405; Q9966; Q9967

== ENCOUNTER 2021-04-21 18:15 | Emergency (ER) | payer SELFPAY ==
[~2021-04-21] VITALS: Ht 167.6 cm; Wt 125.0 kg
[~2021-04-21 18:15] MED LIST changes: +HYDR-2761 PO
--- NOTE | 2021-04-21 19:31 | PHYS DOC ---
Past Medical History Additional Past Medical Histor: gastric bypass, ortho l wrist, hiatal hernia repair Past Surgical History: Appendectomy, Cholecystectomy, , Gastric Bypass, Hysterectomy Smoking Status: Current Every Day Smoker Alcohol Use: Occasionally General Adult EDM: Chief Complaint: ABDOMINAL PAIN HPI: HPI: Patient is a 41 year old female with chronic epigastric abdominal pain, history of acid reflux, gastritis and hiatal hernia. She presents with her usual epigastric abdominal pain and reported nausea and vomiting. She denies hematemesis. She denies constipation or diarrhea. She denies chest pain, cough, dyspnea. She denies urinary symptoms. Denies fevers or chills. She is taking multiple medications, including Carafate and 80 mg Protonix twice daily. She has a GI physician at [facility]. She recently saw the nurse practitioner there. She has an appointment with them in May of this year. She denies any acute changes from her baseline, chronic and recurrent pain today. She is requesting opioid medications. Review of Systems: Review of Systems: Constitutional: Denies fever or chills. [] HENT: Denies nasal congestion or sore throat. [] Respiratory: Denies cough or shortness of breath. [] Cardiovascular: Denies chest pain or edema. [] GI: Epigastric abdominal pain, nausea, vomiting. Denies constipation or diarrhea. Denies hematemesis : Denies urinary symptoms Musculoskeletal: Denies back pain or joint pain. [] Integument: Denies rash. [] Neurologic: Denies headache, focal weakness or sensory changes. [] Psychiatric: Denies depression or anxiety. [] Heart Score: C/O Chest Pain: No Risk Factors: Risk Factors: DM, Current or recent (<one month) smoker, HTN, HLP, family history of CAD, obesity. Risk Scores: Score 0 - 3: 2.5% MACE over next 6 weeks - Discharge Home Score 4 - 6: 20.3% MACE over next 6 weeks - Admit for Clinical Observation Score 7 - 10: 72.7% MACE over next 6 weeks - Early Invasive Strategies Allergies: Allergies: Allergies Coded Allergies Type Severity Reaction Last Updated Verified cephalexin Allergy Severe 04/21/21 Yes metoclopramide Allergy Severe 04/06/21 Yes buspirone Allergy Intermediate 04/21/21 Yes ketorolac Allergy Intermediate 04/06/21 Yes prochlorperazine Allergy Intermediate 04/06/21 Yes tramadol Allergy Intermediate 04/06/21 Yes Physical Exam: PE: Constitutional: Well developed, well nourished, no acute distress, non-toxic appearance. [] HENT: Normocephalic, atraumatic Eyes: Conjunctiva normal, no discharge. Sclera are clear and anicteric Neck: Normal range of motion, no tenderness, supple, no stridor. [] Cardiovascular:Heart rate regular rhythm, no murmur [] Lungs & Thorax: Bilateral breath sounds clear to auscultation [] Abdomen: Abdomen is soft, obese, nondistended, normal bowel sounds, mild epigastric tenderness to palpation. No guarding, no rebound tenderness. No palpable pulsatile mass, no CVA tenderness, no flank abdominal ecchymoses. No lower abdominal tenderness Skin: Warm, dry, no erythema, no rash. No jaundice. Back: No tenderness, no CVA tenderness. [] Extremities: No tenderness, no cyanosis, no clubbing, ROM intact, no edema. [] Neurologic: Alert and oriented X 3, normal motor function, normal sensory function, no focal deficits noted. [] Psychologic: Affect is slightly anxious, she is overall cooperative Current Patient Data: Vital Signs: Vital Signs Date Time Temp Pulse Resp B/P (MAP) Pulse Ox O2 Delivery O2 Flow Rate FiO2 04/21/21 18:38 98.4 89 18 143/103 (116) 96 Room Air 98.4 EKG: EKG: [] Radiology/Procedures: Radiology/Procedures: [] Course & Med Decision Making: Course & Med Decision Making Pertinent Labs and Imaging studies reviewed. (See chart for details) Patient is given IV fluids, IV Zofran, IV morphine. She almost immediately requested more opioid medication after being given the morphine. Laboratory evaluation is unremarkable. She is a benign, nonsurgical abdominal exam. This is admittedly chronic and recurrent abdominal pain. She requests opioid prescription for discharge home. I explained that that will not be done. I explained that chronic pain should not managed by opioids, especially chronic visceral or abdominal pain. She needs to follow-up with her primary care physician and GI physician for further follow-up. I told her to continue taking her prescribed medications, eat a bland diet, drink plenty of fluids. Strict return precautions are given. She verbalizes understanding peer [place] Disclaimer: [place] Disclaimer: This electronic medical record was generated, in whole or in part, using a voice recognition dictation system. Departure Departure Impression: Primary Impression: Chronic epigastric pain Additional Impression: Hiatal hernia Disposition: HOME / SELF CARE / HOMELESS Condition: GOOD Referrals: NO PCP (PCP) Patient Instructions: Abdominal Pain (Nonspecific), Hiatal Hernia Additional Instructions: Continue to take your medications as directed. Based on your description, it appears that your medical management of your condition is very appropriate. Keep your scheduled appointment with GI, I would recommend calling the office and see if he can be placed on the cancellation list to see if you may be seen sooner. In the meantime, contact your primary care doctor for follow-up. Return to the ER for any acute changes in your pain, if you develop uncontrolled vomiting, dehydration, vomiting blood, temperature 100.4 or higher or for any other concerns. I would also recommend you contact your primary care doctor to discuss possible outpatient pain management services. BI CHANDLER DO Apr 21, 2021 19:31
[2021-04-21 19:53] LABS: BASO # 0.1 x10^3/uL (0.0-0.2); BASO % 1 % (0-3); EOS % 1 % (0-3); HEMATOCRIT 38.6 % (36.0-47.0); HEMOGLOBIN 12.5 g/dL (12.0-15.5); LYMPH # 1.6 x10^3/uL (1.0-4.8); LYMPH % 35 % (24-48); MEAN CORPUSCULAR HEMOGLOBIN 28 pg (25-35); MEAN CORPUSCULAR HGB CONC 32 g/dL (31-37); MEAN CORPUSCULAR VOLUME 85 fL (79-100); MONO # 0.5 x10^3/uL (0.0-1.1); MONO % 10 % (0-9); NEUT # 2.4 x10^3/uL (1.8-7.7); NEUT % 53 % (31-73); PLATELET COUNT 291 x10^3/uL (140-400); RED BLOOD COUNT 4.54 x10^6/uL (3.50-5.40); RED CELL DISTRIBUTION WIDTH 15.3 % (11.5-14.5); WHITE BLOOD COUNT 4.5 x10^3/uL (4.0-11.0)
[2021-04-21] MEDS ORDERED: IV NORMAL SALINE 1000ML BAG 1,000 ML IV ONE (20:00)
[2021-04-21] MEDS ORDERED: ONDANSETRON PF 4 MG/2 ML VIAL. IVP ONE (20:00)
[2021-04-21] MEDS ORDERED: MORPHINE SULFATE 4 MG/ML INJ. IVP ONE (20:00)
[2021-04-21 20:09] LABS: CALCIUM 8.9 mg/dL (8.5-10.1); CREATININE 0.8 mg/dL (0.6-1.0); GFR 79.4; POTASSIUM 3.9 mmol/L (3.5-5.1)
[2021-04-21 20:14] LABS: ALBUMIN 4.1 g/dL (3.4-5.0); TOTAL BILIRUBIN 0.3 mg/dL (0.2-1.0); TOTAL PROTEIN 8.1 g/dL (6.4-8.2)
[2021-04-21 20:20] LABS: BILIRUBIN,URINE NEGATIVE (NEG); CLARITY,URINE CLEAR; COLOR,URINE YELLOW
[2021-04-21 20:21] LABS: NITRITE,URINE NEGATIVE (NEG); PROTEIN,URINE NEGATIVE (NEG-TRACE); RBC,URINE OCC /HPF (0-2); UROBILINOGEN,URINE 0.2 mg/dL (0.2 mg/dL); WBC,URINE OCC /HPF (0-4)
[2021-04-21 20:22] LABS: YEAST,URINE PRESENT /HPF
[2021-04-21 20:23] LABS: BACTERIA,URINE FEW /HPF (0-FEW)
[2021-04-21 21:00] VITALS: BP 140/85
== END 2021-04-21 21:20 | disposition home or self-care (01) ==
LOC: ER 18:15
DX: K44.9 Diaphragmatic hernia without obstruction or gangrene (principal); G89.29 Other chronic pain; R10.13 Epigastric pain; F17.200 Nicotine dependence, unspecified, uncomplicated; Z90.89 Acquired absence of other organs; Z90.49 Acquired absence of other specified parts of digestive tract; Z90.710 Acquired absence of both cervix and uterus; Z98.84 Bariatric surgery status; K21.9 Gastro-esophageal reflux disease without esophagitis; Z88.1 Allergy status to other antibiotic agents; Z88.6 Allergy status to analgesic agent; Z88.8 Allergy status to other drugs, medicaments and biological substances
CPT/HCPCS: 36415; 80053; 81001; 83690; 85025; 96361; 96374; 96375; 99284; J2270; J2405; J7030

== ENCOUNTER → 2021-07-14 | Emergency (ER) | payer SELFPAY ==
[~2021-07-14] VITALS: Ht 167.6 cm; Wt 86.0 kg
[~2021-07-14] MED LIST changes: +ACET1TAB56 PO
[2021-07-14 02:05] VITALS: BP 142/88
--- NOTE | 2021-07-14 02:31 | RAD ---
Chest radiograph 07/14/2021 2:20 AM INDICATION: Right-sided chest pain after fall COMPARISON: None available TECHNIQUE: Frontal and lateral views of the chest are provided. FINDINGS: The cardiomediastinal silhouette is within normal limits. There are no pleural effusions. There is no pulmonary vascular congestion. There is no pneumothorax. The lungs are clear. No significant osseous abnormality is identified. IMPRESSION: No acute cardiopulmonary process. Electronically signed by: Meli Benton MD (07/14/2021 2:28 AM) [facility]
--- NOTE | 2021-07-14 03:18 | PHYS DOC ---
Past Medical History Additional Past Medical Histor: gastric bypass, ortho l wrist, hiatal hernia repair Past Surgical History: Hysterectomy Smoking Status: Never Smoker Alcohol Use: None General Adult EDM: Chief Complaint: MECHANICAL FALL HPI: HPI: Patient is a 41 year old female who presents with pain on the right chest wall. States that she was standing today when she tripped and fell directly onto her right side. Tried using Motrin and a Lidoderm patch but it has not worked. Pain is worse with deep inspiration. Denies any abdominal pain nausea vomiting. No melena or hematochezia. No hematuria. She is not currently on any blood thinners. Review of Systems: Review of Systems: Constitutional: Denies fever or chills. [] Eyes: Denies change in visual acuity. [] HENT: Denies nasal congestion or sore throat. [] Respiratory: Denies cough or shortness of breath. [] Cardiovascular: Right chest wall pain GI: Denies abdominal pain, nausea, vomiting, bloody stools or diarrhea. [] : Denies dysuria. [] Musculoskeletal: Denies back pain or joint pain. [] Integument: Denies rash. [] Neurologic: Denies headache, focal weakness or sensory changes. [] Endocrine: Denies polyuria or polydipsia. [] Lymphatic: Denies swollen glands. [] Psychiatric: Denies depression or anxiety. [] Heart Score: C/O Chest Pain: No Risk Factors: Risk Factors: DM, Current or recent (<one month) smoker, HTN, HLP, family history of CAD, obesity. Risk Scores: Score 0 - 3: 2.5% MACE over next 6 weeks - Discharge Home Score 4 - 6: 20.3% MACE over next 6 weeks - Admit for Clinical Observation Score 7 - 10: 72.7% MACE over next 6 weeks - Early Invasive Strategies Allergies: Allergies: Allergies Coded Allergies Type Severity Reaction Last Updated Verified cephalexin Allergy Severe 07/14/21 Yes metoclopramide Allergy Severe 07/14/21 Yes buspirone Allergy Intermediate 07/14/21 Yes ketorolac Allergy Intermediate 07/14/21 Yes prochlorperazine Allergy Intermediate 07/14/21 Yes tramadol Allergy Intermediate 07/14/21 Yes Physical Exam: PE: Constitutional: Well developed, well nourished, no acute distress, non-toxic appearance. [] HENT: Normocephalic, atraumatic, bilateral external ears normal, oropharynx moist, no oral exudates, nose normal. [] Eyes: PERRLA, EOMI, conjunctiva normal, no discharge. [] Neck: Normal range of motion, no tenderness, supple, no stridor. [] Cardiovascular:Heart rate regular rhythm, no murmur [] Lungs & Thorax: Bilateral breath sounds clear to auscultation [] Abdomen: Bowel sounds normal, soft, no tenderness, no masses, no pulsatile masses. [] Skin: Warm, dry, no erythema, no rash. [] Back: No tenderness, no CVA tenderness. [] Extremities: No tenderness, no cyanosis, no clubbing, ROM intact, no edema. [] Neurologic: Alert and oriented X 3, normal motor function, normal sensory function, no focal deficits noted. [] Psychologic: Affect normal, judgement normal, mood normal. [] Current Patient Data: Vital Signs: Vital Signs Date Time Temp Pulse Resp B/P (MAP) Pulse Ox O2 Delivery O2 Flow Rate FiO2 07/14/21 02:05 98.4 117 16 142/88 (106) 99 Room Air 98.4 EKG: EKG: [] Radiology/Procedures: Radiology/Procedures: [] Course & Med Decision Making: Course & Med Decision Making Pertinent Labs and Imaging studies reviewed. (See chart for details) Physical exam is completely unremarkable. Patient has no pain to palpation over the liver area. The pain is reproducible by her taking in deep breaths and me palpating the chest wall. Chest x-ray does not show any pneumothorax or any obvious rib injuries. Likely chest wall contusion. [place] Disclaimer: Dragon Disclaimer: This electronic medical record was generated, in whole or in part, using a voice recognition dictation system. Departure Departure Impression: Primary Impression: Chest wall contusion Disposition: HOME / SELF CARE / HOMELESS Condition: STABLE Referrals: NO PCP (PCP) Patient Instructions: Chest Wall Pain Scripts Acetaminophen With Codeine (ACETAMINOPHEN-COD #3 TABLET) 1 Each Tablet 1 TAB PO PRN Q6HRS PRN for PAIN, #4 TAB Prov: SULEMA POLK MD 07/14/21 SULEMA POLK MD July 14, 2021 03:18
== END | disposition home or self-care (01) ==
LOC: ER 01:24
DX: S20.211A Contusion of right front wall of thorax, initial encounter (principal); Z88.1 Allergy status to other antibiotic agents; Z88.8 Allergy status to other drugs, medicaments and biological substances; Z88.6 Allergy status to analgesic agent; W01.0XXA Fall on same level from slipping, tripping and stumbling without subsequent striking against object, initial encounter; Y93.89 Activity, other specified; Y92.89 Other specified places as the place of occurrence of the external cause; Y99.8 Other external cause status
CPT/HCPCS: 71046; 99283